=== PATIENT | female | born 1970 | race African-American/Black ===

== ENCOUNTER 2019-02-18 07:06 | Emergency (ER) | payer OTHER ==
[2019-02-18] MEDS ORDERED: DIAZEPAM 5 MG TABLET ONE (07:50)
[2019-02-18] MEDS ORDERED: METHOCARBAMOL 500 MG TAB ONE (07:50)
[2019-02-18] MEDS ORDERED: IBUPROFEN 200 MG TAB PO ONE (07:51)
[2019-02-18] MEDS ORDERED: IBUPROFEN 400 MG TAB ONE (07:51)
[2019-02-18 08:08] LABS: Urine Blood NEGATIVE (NEG); Urine Glucose 2+ (NEG); Urine Protein NEGATIVE (NEG)
--- NOTE | 2019-02-18 08:29 | RAD REPORT ---
EXAM DESCRIPTION: CT - Spine Lumbar Wo Con - 02/18/2019 8:05 am CLINICAL HISTORY: Radiculopathy. NUMBNESS/TINGLING COMPARISON: No comparisons TECHNIQUE: Axial noncontrast CT imaging of the lumbar spine was performed with coronal and sagittal re-formatted images. All CT scans are performed using dose optimization technique as appropriate and may include automated exposure control or mA/KV adjustment according to patient size. FINDINGS: No acute lumbar spine fracture seen. No aggressive marrow pattern or malalignment. Paraspinal tissues are normal in thickness. No paraspinal abscess or hematoma seen. Spondylosis is present particularly prominent at L5-S1 with there is vacuum disc degeneration, endpla te sclerosis and a calcified posterior disc bulge. Narrowing of the central canal is present of moder ate severity. Aortic atherosclerosis present. IMPRESSION: No acute lumbar spine finding. Moderate degenerative spondylosis L5-S1.
--- NOTE | 2019-02-18 08:44 | EDPHYS ---
Physician Documentation [facility] Name: Mily Oliva Age: 48 yrs Sex: Female : 1970 Arrival Date: 02/18/2019 Time: 07:11 Bed 17 Private MD: ED Physician Vernon Tamayo HPI: 02/18 07:52 This 48 yrs old Black Female presents to ER via Ambulatory with complaints of Leg Pain. la1 07:52 The patient presents with pain, that is acute, numbness. The complaints affect the la1 right hip, lateral aspect of right thigh, lateral aspect of right knee, lateral aspect of right calf, right ankle and lateral aspect of right foot. Context: The problem was sustained at home, the patient can fully bear weight, the patient is able to ambulate. Onset: The symptoms/episode began/occurred this morning. Modifying factors: The symptoms are alleviated by remaining still, standing. the symptoms are aggravated by sitting. Associated signs and symptoms: Pertinent positives: numbness, tingling, Pertinent negatives calf tenderness, fever, vomiting, weakness. Treatment prior to arrival includes: no previous treatment. Severity of symptoms: At their worst the symptoms were moderate. The patient has experienced a previous episode, approximately 3 days ago. Pt reports onset of right hip pain and numbness that extends down lateral right lower extremity and includes toes 3-5 on the right foot. Historical: - Allergies: 07:37 No Known Allergies; iw - Home Meds: 07:37 lisinopril 5 mg Oral tab 1 tab once daily [Active]; simvastatin 40 mg Oral tab 1 tab iw once daily [Active]; metformin 1,000 mg Oral tab 1 tab 2 times per day [Active]; Tresiba FlexTouch U-100 100 unit/mL (3 mL) subcutaneous inpn [Active]; ozempic weekly [Active]; - PMHx: 07:37 Diabetes - IDDM; iw - Immunization history:: Adult Immunizations up to date. - Ebola Screening: : Patient negative for fever greater than or equal to 101.5 degrees Fahrenheit, and additional compatible Ebola Virus Disease symptoms Patient denies exposure to infectious person Patient denies travel to an Ebola-affected area in the 21 days before illness onset No symptoms or risks identified at this time. - Social history:: Smoking status: Patient/guardian denies using tobacco. ROS: 07:54 Constitutional: Negative for fever, chills, and weight loss, Eyes: Negative for injury, la1 pain, redness, and discharge, ENT: Negative for injury, pain, and discharge, Neck: Negative for injury, pain, and swelling, Cardiovascular: Negative for chest pain, palpitations, and edema, Respiratory: Negative for shortness of breath, cough, wheezing, and pleuritic chest pain, Abdomen/GI: Negative for abdominal pain, nausea, vomiting, diarrhea, and constipation, Back: Negative for injury and pain, : Negative for injury, bleeding, discharge, and swelling, MS/Extremity: Negative for injury and deformity, Skin: Negative for injury, rash, and discoloration, Neuro: + for numbness/tingling to right lower extremity, denies saddle anesthesia, denies loss of continence. Exam: 07:55 Constitutional: This is a well developed, well nourished patient who is awake, alert, la1 and in no acute distress. Head/Face: Normocephalic, atraumatic. Eyes: Pupils equal round and reactive to light, extra-ocular motions intact. Periorbital areas with no swelling, redness, or edema. ENT: Mucous membranes moist. Neck: No Meningismus. Chest/axilla: Normal chest wall appearance and motion. Nontender with no deformity. No lesions are appreciated. Cardiovascular: Regular rate and rhythm with a normal S1 and S2. No gallops, murmurs, or rubs. Normal PMI, no JVD. No pulse deficits. Respiratory: Lungs have equal breath sounds bilaterally, clear to auscultation and percussion. No rales, rhonchi or wheezes noted. No increased work of breathing, no retractions or nasal flaring. Back: No spinal tenderness. No costovertebral tenderness. Full range of motion. MS/ Extremity: Pulses equal, no cyanosis. Neurovascular intact. Full, normal range of motion. Neuro: Awake and alert, GCS 15, oriented to person, place, time, and situation. Motor strength 5/5 in all extremities. Sensory grossly intact. Cerebellar exam normal. Normal gait. Vital Signs: 07:29 BP 155 / 86 RA Sitting (auto/reg); Pulse 95; Resp 18; Temp 97.4(TE); Pulse Ox 100% ; ms Weight 97.07 kg; Height 5 ft. 1 in. (154.94 cm); Pain 8/10; 07:29 Body Mass Index 40.43 (97.07 kg, 154.94 cm) ms MDM: 07:11 Patient medically screened. la1 08:40 Data reviewed: vital signs, nurses notes, radiologic studies, CT scan, I have discussed la1 the patient's presentation/case with the attending Emergency Department Physician; and as a result, I will discharge patient. Data interpreted: Pulse oximetry: on room air is 100 %. Interpretation: normal. Counseling: I had a detailed discussion with the patient and/or guardian regarding: the historical points, exam findings, and any diagnostic results supporting the discharge/admit diagnosis, radiology results, the need for outpatient follow up, a family practitioner, to return to the emergency department if symptoms worsen or persist or if there are any questions or concerns that arise at home. Counseling: I had a detailed discussion with the patient and/or guardian regarding: discussed presence of glucose in urine, pt has apt with PCP on Thursday morning. Medication response: robaxin, valium. Response to treatment: the patient's symptoms have mildly improved after treatment. 02/18 08:03 Order name: Urine Dipstick--Ancillary (enter results); Complete Time: 08:25 eb 12 07:43 Order name: CT Lumbar Spine Wo Con; Complete Time: 08:31 la1 02/18 07:43 Order name: Urine Dipstick-Ancillary (obtain specimen); Complete Time: 08:11 la1 Administered Medications: 07:55 Drug: Robaxin 750 mg Route: PO; em 08:58 Follow up: Response: No adverse reaction; Pain is decreased em 07:55 Drug: Valium 5 mg Route: PO; em 08:58 Follow up: Response: No adverse reaction; Pain is decreased em 07:55 Drug: Ibuprofen 600 mg Route: PO; em 08:58 Follow up: Response: No adverse reaction; Pain is decreased em Disposition: 16:44 Co-signature as Attending Physician, Vernon Tamayo MD I agree with the assessment and kdr plan of care. Disposition: 02/18/19 08:42 Discharged to Home. Impression: Low back pain, Paresthesia of skin. - Condition is Stable. - Discharge Instructions: Back Pain, Adult, Musculoskeletal Pain, Paresthesia, Sciatica. - Prescriptions for meloxicam 7.5 mg Oral tablet - take 1 tablet by ORAL route once daily; 10 tablet. Robaxin 500 mg Oral Tablet - take 2 tablets by ORAL route every 6 hours As needed; 40 tablet. - Work release form, Medication Reconciliation Form, Thank You Letter form. - Follow up: Private Physician; When: 2 - 3 days; Reason: Recheck today's complaints, Re-evaluation by your physician. - Problem is new. - Symptoms have improved. Signatures: Dispatcher [employer] EDAK Vernon Tamayo MD MD [facility] Alonzo Stone, HEAVY EQUIPMENT ENGINE MECHANIC HEAVY EQUIPMENT ENGINE MECHANIC em Lilian Dempsey, RN RN iw Steve Philip, MILK DELIVERY DRIVER-C MILK DELIVERY DRIVER-Cla1 Corrections: (The following items were deleted from the chart) 08:58 08:42 02/18/2019 08:42 Discharged to Home. Impression: Low back pain; Paresthesia of em skin. Condition is Stable. Forms are Medication Reconciliation Form, Thank You Letter, Antibiotic Education, Prescription Opioid Use. Follow up: Private Physician; When: 2 - 3 days; Reason: Recheck today's complaints, Re-evaluation by your physician. Problem is new. Symptoms have improved. la1
--- NOTE | 2019-02-18 08:44 | ER ---
Nurse's Notes [facility] Name: Mily Oliva Age: 48 yrs Sex: Female : 1970 Arrival Date: 02/18/2019 Time: 07:11 Bed 17 Private MD: Diagnosis: Low back pain;Paresthesia of skin Presentation: 02/18 07:33 Presenting complaint: Patient states: pain from right hip down to right foot, started iw three days ago, today right lateral leg went numb this morning. Transition of care: patient was not received from another setting of care. Onset of symptoms was February 15, 2019. Risk Assessment: Do you want to hurt yourself or someone else? Patient reports no desire to harm self or others. Initial Sepsis Screen: Does the patient meet any 2 criteria? No. Patient's initial sepsis screen is negative. Does the patient have a suspected source of infection? No. Patient's initial sepsis screen is negative. Care prior to arrival: None. 07:33 Method Of Arrival: Ambulatory iw 07:33 Acuity: DEE 4 iw Historical: - Allergies: 07:37 No Known Allergies; iw - Home Meds: 07:37 lisinopril 5 mg Oral tab 1 tab once daily [Active]; simvastatin 40 mg Oral tab 1 tab iw once daily [Active]; metformin 1,000 mg Oral tab 1 tab 2 times per day [Active]; Tresiba FlexTouch U-100 100 unit/mL (3 mL) subcutaneous inpn [Active]; ozempic weekly [Active]; - PMHx: 07:37 Diabetes - IDDM; iw - Immunization history:: Adult Immunizations up to date. - Ebola Screening: : Patient negative for fever greater than or equal to 101.5 degrees Fahrenheit, and additional compatible Ebola Virus Disease symptoms Patient denies exposure to infectious person Patient denies travel to an Ebola-affected area in the 21 days before illness onset No symptoms or risks identified at this time. - Social history:: Smoking status: Patient/guardian denies using tobacco. Screenin:40 Abuse screen: Denies threats or abuse. Nutritional screening: No deficits noted. em Tuberculosis screening: No symptoms or risk factors identified. Fall Risk None identified. Assessment: 07:40 General: Appears in no apparent distress. uncomfortable, well groomed, well developed, em well nourished, Behavior is cooperative, crying, Denies fever. Pain: Complains of pain in right hip Pain radiates to right leg Pain currently is 10 out of 10 on a pain scale. Pain began 2-3 days ago. Neuro: Level of Consciousness is awake, alert, obeys commands, Oriented to person, place, time, situation, Appropriate for age. Cardiovascular: Capillary refill < 3 seconds Patient's skin is warm and dry. Respiratory: Airway is patent Respiratory effort is even, unlabored, Respiratory pattern is regular, symmetrical. GI: Abdomen is round non-distended. : Denies burning with urination. Derm: Skin is intact, is healthy with good turgor, Skin is pink, warm \T\ dry. Musculoskeletal: Capillary refill < 3 seconds, Range of motion: intact in all extremities. 07:50 Reassessment: Patient appears in no apparent distress at this time. I agree with the iw assessment made by CALLIE Rosado. 08:58 Reassessment: Patient appears in no apparent distress at this time. Patient and/or em family updated on plan of care and expected duration. Pain level reassessed. Patient is alert, oriented x 3, equal unlabored respirations, skin warm/dry/pink. Vital Signs: 07:29 BP 155 / 86 RA Sitting (auto/reg); Pulse 95; Resp 18; Temp 97.4(TE); Pulse Ox 100% ; ms Weight 97.07 kg; Height 5 ft. 1 in. (154.94 cm); Pain 8/10; 07:29 Body Mass Index 40.43 (97.07 kg, 154.94 cm) ms ED Course: 07:11 Patient arrived in ED. mr 07:16 Steve Philip FNP-C is PHCP. la1 07:16 Vernon Tamayo MD is Attending Physician. la1 07:29 Alonzo Stone LVN is Primary Nurse. em 07:34 Triage completed. iw 07:40 Patient has correct armband on for positive identification. Placed in gown. Bed in low em position. Call light in reach. 07:40 Arm band placed on. em 08:06 CT Lumbar Spine Wo Con In Process Unspecified. EDMS 08:41 Urine collected: clean catch specimen, clear. ms 08:55 No provider procedures requiring assistance completed. Patient did not have IV access em during this emergency room visit. Administered Medications: 07:55 Drug: Robaxin 750 mg Route: PO; em 08:58 Follow up: Response: No adverse reaction; Pain is decreased em 07:55 Drug: Valium 5 mg Route: PO; em 08:58 Follow up: Response: No adverse reaction; Pain is decreased em 07:55 Drug: Ibuprofen 600 mg Route: PO; em 08:58 Follow up: Response: No adverse reaction; Pain is decreased em Outcome: 08:42 Discharge ordered by MD. giles 08:55 Discharged to home ambulatory, with family. em 08:55 Condition: good 08:55 Discharge instructions given to patient, Instructed on discharge instructions, follow up and referral plans. medication usage, Demonstrated understanding of instructions, follow-up care, medications, Prescriptions given X 2. 08:58 Patient left the ED. em Signatures: Dispatcher [employer] EDMasha Jaime mr Chase, Alonzo, ACCOUNT SERVICES ASSOCIATE ACCOUNT SERVICES ASSOCIATE em Lilian Dempsey RN RN iw Villarreal, Maria ms Attema, Lee, AGRICULTURAL SCIENCES PROFESSOR-C AGRICULTURAL SCIENCES PROFESSOR-Cla1 Corrections: (The following items were deleted from the chart) 19:18 19:17 No provider procedures requiring assistance completed. em em 19:18 19:17 Patient did not have IV access during this emergency room visit. em em
[2019-02-18 09:45] VITALS: BP 155/86; TEMP 97.4; O2SAT 100
== END 2019-02-18 08:58 | disposition home or self-care (01) ==
LOC: ER 07:06
DX: R20.2 Paresthesia of skin (principal); E11.9 Type 2 diabetes mellitus without complications; Z79.4 Long term (current) use of insulin
CPT/HCPCS: 72131; 81003; 99284